=== PATIENT | female | born 1980 | race Two or more races ===

== ENCOUNTER → 2020-11-05 | Outpatient (CLI) | payer OTHER | END | disposition home or self-care (01) | LOC: PRENATAL 08:37 | PROVIDERS: ATTEND Obstetrics & Gynecology Maternal & Fetal Medicine | DX: Z36.89 Encounter for other specified antenatal screening (principal); O36.80X1 Pregnancy with inconclusive fetal viability, fetus 1; O09.521 Supervision of elderly multigravida, first trimester; Z3A.13 13 weeks gestation of pregnancy ==

== ENCOUNTER 2023-11-24 08:58 | Emergency (ER) | payer OTHER ==
[~2023-11-24] VITALS: Ht 157.5 cm; Wt 72.6 kg
[2023-11-24] MEDS ORDERED: DEXAMETHASONE SODIUM PHOSPHATE 4 MG/ML VIAL IM STA (09:32)
[2023-11-24] MEDS ORDERED: ORPHENADRINE CITRATE 30 MG/ML AMPUL IM STA (09:32)
[2023-11-24 09:56] LABS: HEMATOCRIT 27.9 % (36.0-45.00); MEAN CORPUSCULAR HGB CONC 29.9 g/dl (32.0-36.0); PLATELET COUNT 194 K/uL (150-450); RED BLOOD COUNT 4.73 M/uL (4.00-6.00)
[2023-11-24 10:01] LABS: HEMOGLOBIN 8.3 g/dL (12.0-15.00); MEAN CORPUSCULAR HEMOGLOBIN 17.5 pg (27.00-32.0); RED CELL DISTRIBUTION WIDTH 19.3 % (11.5-14.5)
[2023-11-24 10:24] LABS: URINE APPEARANCE Clear; URINE BILIRRUBIN Negative (NEGATIVE); URINE BLOOD Negative; URINE COLOR Yellow; URINE GLUCOSE Negative (NEGATIVE); URINE LEUKOCYTE Negative; URINE NITRATE Negative; URINE PROTEIN Negative (NEGATIVE); URINE UROBILINOGEN 0.2 E.U./dl
[2023-11-24 10:28] LABS: URINE BACTERIA 54.1 uL (0.0-1933); URINE EPITHELIAL CELLS 7.5 uL (0.0-38.8)
[2023-11-24 10:33] LABS: ALBUMIN 3.7 gm/dL (3.4-5.0); BILIRUBIN TOTAL 0.39 mg/dL (0.3-1.2); CREATININE SERUM 0.83 mg/dL (0.55-1.02); GFR 75.03; GLOBULINA 4.2 G/DL (2.4-3.5); POTASSIUM 4.02 mEq/L (3.5-5.1); TOTAL PROTEIN 7.9 gm/dL (6.4-8.2)
[2023-11-24 10:44] LABS: URINE RBC 1.7 uL (0.0-20.8); URINE WBC 1.3 uL (0.0-23.2)
[2023-11-24] MEDS ORDERED: STOOL SOFTENER50 MG PO (12:09)
[2023-11-24] MEDS ORDERED: IRON325 MG PO (12:09)
== END 2023-11-24 12:27 | disposition home or self-care (01) ==
LOC: ER 08:58
PROVIDERS: General Practice
DX: R51.9 Headache, unspecified (principal); D64.9 Anemia, unspecified

== ENCOUNTER 2024-10-10 18:57 | Emergency (ER) | payer OTHER ==
[~2024-10-10] VITALS: Ht 157.5 cm; Wt 72.6 kg
[~2024-10-10 18:57] MED LIST: IRON325 MG PO; STOOL SOFTENER50 MG PO
[2024-10-10 19:17] VITALS: BP 138/80; O2SAT 100
[2024-10-10] MEDS ORDERED: LIDOCAINE HCL 1% 10ML VIAL PERCUT STA (21:00)
[2024-10-10] MEDS ORDERED: DIPHTH,PERTUSS(ACELL),TET VAC 0.5 ML SYRINGE IM ONE (21:30)
== END 2024-10-10 21:45 | disposition home or self-care (01) ==
LOC: ER 19:00
DX: S61.422A Laceration with foreign body of left hand, initial encounter (principal); W26.0XXA Contact with knife, initial encounter; Y93.G3 Activity, cooking and baking; Y92.010 Kitchen of single-family (private) house as the place of occurrence of the external cause
CPT/HCPCS: 12002; 90471; 90714; 96372; 99282; J1670; J3490